=== PATIENT | female | born 2005 ===

== ENCOUNTER → 2024-08-26 08:00 | Outpatient (BNV) | payer BC, SELFPAY | PROVIDERS: Visit Provider Internal Medicine Cardiovascular Disease | DX: R00.0 Tachycardia, unspecified (principal) | CPT/HCPCS: 93244 ==

== ENCOUNTER → 2024-08-26 10:30 | Outpatient (REF) | payer BC, SELFPAY | LOC: HO.CARD 10:30 | PROVIDERS: Visit Provider Emergency Medicine | DX: R07.9 Chest pain, unspecified (principal) | CPT/HCPCS: 93242 ==